=== PATIENT | female | born 1980 | race Caucasian/White ===

== ENCOUNTER → 2016-12-28 | Outpatient (CLI) | payer BC ==
--- NOTE | 2016-12-29 07:30 | USB ---
Reason for exam: clinical finding. History: Benign US biopsy breast VAD LT of the left breast, May 26, 2016. Indicated problem(s): palpable abnormality in the right breast. Physical Findings: Nurse Summary: 0.5cm nodule at 10:30, movable (nurse dw). US Breast BILAT Right breast ultrasound includes all four quadrants, the retroareolar region and axilla. Finding demonstrates a 0.4 x 0.4 x 0.3cm oval leson too small to characterize at 5 o'clock and can be reassessed in 6 months. No abnormality seen at the palpable site at 11 o'clock on right breast zone B/C. Left breast ultrasound includes all four quadrants, the retroareolar region and axilla. Finding demonstrate a 0.7 x 0.7 x 0.5cm oval, hypoechoic lesion at 3 o'clock, prior biopsy here with clips, versus 11 x 8 x 6mm previously prior to biopsy, benign, fibroadenoma. These results were verbally communicated with the patient and result sheet given to the patient on 12/28/16. ASSESSMENT: Probably benign, BI-RAD 3 RECOMMENDATION: 1. Follow-up diagnostic mammogram of both breasts in 6 months. Back on schedule for May. 2. Ultrasound of the right breast in 6 months (5 o'clock), incidental finding during evaluation of a palpable area in the right breast. 3. Manage on a clinical basis with regard to any suspicious palpable abnormality. [facility]
== END | disposition home or self-care (01) ==
LOC: RADUSWWP 15:46
PROVIDERS: ATTEND Surgery
DX: R92.8 Other abnormal and inconclusive findings on diagnostic imaging of breast (principal)

== ENCOUNTER → 2018-07-26 | Outpatient (CLI) | payer BC ==
--- NOTE | 2018-07-29 09:47 | MM ---
Reason for exam: additional evaluation requested from prior study. Last mammogram was performed 2 years and 2 months ago. History: Benign US biopsy breast VAD LT of the left breast, May 26, 2016. Taking hormonal contraceptives beginning at age 37. Physical Findings: Nurse did not find any significant physical abnormalities on exam. MG Diagnostic Mammo w CAD BRIANNA Bilateral CC and MLO view(s) were taken. XCCL view(s) were taken of the left breast. Prior study comparison: May 26, 2016, left breast MG diagnostic mammo LT wo CAD. May 24, 2016, bilateral MG diagnostic mammo w CAD BRIANNA. The breast tissue is heterogeneously dense. This may lower the sensitivity of mammography. No suspicious calcifications are seen. Previous mammotome biopsy in the left breast. Increased density adjacent to previous biopsy site. These results were verbally communicated with the patient and result sheet given to the patient on 07/26/18. ASSESSMENT: Incomplete: need additional imaging evaluation, BI-RAD 0 RECOMMENDATION: Ultrasound of the left breast.
--- NOTE | 2018-07-29 09:48 | USB ---
Reason for exam: additional evaluation requested from abnormal screening. History: Benign US biopsy breast VAD LT of the left breast, May 26, 2016. Taking hormonal contraceptives beginning at age 37. US Breast Limited LT Left limited breast ultrasound including focal area of concern, retroareolar and axilla demonstrates a 0.8 x 0.6 x 0.7cm oval, solid lesion at 3 o'clock, previously biopsied, no additional abnormality seen. These results were verbally communicated with the patient and result sheet given to the patient on 07/26/18. ASSESSMENT: Probably benign, BI-RAD 3 RECOMMENDATION: Follow-up diagnostic mammogram of the left breast in 6 months.
== END | disposition home or self-care (01) ==
LOC: RADMAMWWP 15:50
PROVIDERS: ATTEND Family Medicine
DX: R92.8 Other abnormal and inconclusive findings on diagnostic imaging of breast (principal)
CPT/HCPCS: 77066

== ENCOUNTER 2019-10-19 10:29 | Emergency (ER) | payer BC ==
[2019-10-19 10:33] VITALS: RESP 18
[2019-10-19] MEDS ORDERED: Rhogam IMMUNE GLOBULIN 1,500 UNIT/1 ML IM ONE (11:07)
--- NOTE | 2019-10-19 11:15 | ED ---
Female Urogenital HPI - General Chief complaint: Vaginal Bleeding Stated complaint: Bleeding 8wks preg Time Seen by Provider: 10/19/19 10:41 Source: patient, RN notes reviewed, old records reviewed Mode of arrival: ambulatory Limitations: no limitations - History of Present Illness Initial comments: This Patient is a pleasant 39-year-old female, she presents emergency department today for concern for heavy abnormal uterine bleeding in early . Patient is a female. She reports she is approximately 8 weeks based off of her last menstrual. Patient reports a chief to the [place] with Dr. Saha. Patient states that she does have an upcoming appointment with Dr. Saha in 2 weeks. Patient states that she was taking control, and this was an unplanned . Patient states that she has had no significant abdominal pain at this time. She reports no nausea or vomiting change in urination. - Related Data Allergies Allergy/AdvReac Type Severity Reaction Status Date / Time No Known Allergies Allergy Verified 10/19/19 13:28 Review of Systems ROS Statement: Those systems with pertinent positive or pertinent negative responses have been documented in the HPI. ROS Other: All systems not noted in ROS Statement are negative. Past Medical History Past Medical History: No Reported History History of Any Multi-Drug Resistant Organisms: None Reported Past Surgical History: Section, Cholecystectomy Past Psychological History: No Psychological Hx Reported Smoking Status: Never smoker Past Alcohol Use History: None Reported Past Drug Use History: None Reported General Exam - General Exam Comments Initial Comments: 39-year-old female. Alert and oriented 3. Limitations: no limitations General appearance: alert, in no apparent distress Head exam: Present: atraumatic Eye exam: Present: normal appearance, PERRL, EOMI. Absent: scleral icterus, conjunctival injection, periorbital swelling ENT exam: Present: normal exam Neck exam: Present: normal inspection. Absent: tenderness, meningismus, lymphadenopathy Respiratory exam: Present: normal lung sounds bilaterally. Absent: respiratory distress, wheezes, rales, rhonchi, stridor Cardiovascular Exam: Present: regular rate, normal rhythm, normal heart sounds. Absent: systolic murmur, diastolic murmur, rubs, gallop, clicks GI/Abdominal exam: Present: soft, normal bowel sounds. Absent: distended, tenderness, guarding, rebound, rigid External exam: Present: normal external exam Speculum exam: Present: vaginal bleeding (Patient does have some vaginal bleeding. No significant clotting. Cervix appears closed. No adnexal tenderness.). Absent: normal speculum exam By manual exam: Present: normal by manual exam. Absent: cervical motion tenderness, adnexal tenderness Extremities exam: Present: normal inspection, full ROM, normal capillary refill. Absent: tenderness, pedal edema, joint swelling, calf tenderness Back exam: Present: normal inspection Neurological exam: Present: alert, oriented X3, CN II-XII intact Psychiatric exam: Present: normal affect, normal mood Skin exam: Present: warm, dry, intact, normal color. Absent: rash Course Vital Signs 10/19/19 10:30 Temperature 98.2 F Pulse Rate 101 H Respiratory 18 Rate Blood Pressure 154/81 O2 Sat by Pulse 99 Oximetry Medical Decision Making - Medical Decision Making 31-year-old female, . She has not Rh- blood type. She presents for vaginal bleeding times one day. Patient was given RhoGAM. Ultrasound was completed. There is evidence of viable and treatment but moderate amount of subchorionic bleed. I discussed Patient is to have pelvic rest, no intercourse and minimal lifting. I discussed patient's case with Dr. Rey. Recommends Patient following up in the office earlier with Dr. Saha. She did have a scheduled appointment on October 28. Patient advised to call their office first thing tomorrow morning. Patient was given administered RhoGAM and emergency department. - Lab Data Result diagrams: 10/19/19 11:24 10/19/19 11:24 Lab Results 10/19/19 10/19/19 10/19/19 Range/Units 11:24 11:24 11:24 WBC 8.0 (3.8-10.6) k/uL RBC 4.38 (3.80-5.40) m/uL Hgb 12.6 (11.4-16.0) gm/dL Hct 38.2 (34.0-46.0) % MCV 87.0 (80.0-100.0) fL MCH 28.7 (25.0-35.0) pg MCHC 33.0 (31.0-37.0) g/dL RDW 11.6 (11.5-15.5) % Plt Count 232 (150-450) k/uL Neutrophils % 76 % Lymphocytes % 18 % Monocytes % 4 % Eosinophils % 1 % Basophils % 0 % Neutrophils # 6.1 (1.3-7.7) k/uL Lymphocytes # 1.5 (1.0-4.8) k/uL Monocytes # 0.3 (0-1.0) k/uL Eosinophils # 0.1 (0-0.7) k/uL Basophils # 0.0 (0-0.2) k/uL PT 9.6 (9.0-12.0) sec INR 0.9 (<1.2) APTT 22.6 (22.0-30.0) sec Sodium 136 L (137-145) mmol/L Potassium 4.2 (3.5-5.1) mmol/L Chloride 106 (98-107) mmol/L Carbon Dioxide 24 (22-30) mmol/L Anion Gap 6 mmol/L BUN 12 (7-17) mg/dL Creatinine 0.46 L (0.52-1.04) mg/dL Est GFR (CKD-EPI)AfAm >90 (>60 ml/min/1.73 sqM) Est GFR (CKD-EPI)NonAf >90 (>60 ml/min/1.73 sqM) Glucose 86 (74-99) mg/dL Calcium 9.7 (8.4-10.2) mg/dL HCG, Quant 262479.0 mIU/mL Trichomonas Ag (Rapid) (Negative) Blood Type Blood Type Recheck Bld Type Recheck Status Antibody Screen 10/19/19 10/19/19 Range/Units 11:24 12:30 WBC (3.8-10.6) k/uL RBC (3.80-5.40) m/uL Hgb (11.4-16.0) gm/dL Hct (34.0-46.0) % MCV (80.0-100.0) fL MCH (25.0-35.0) pg MCHC (31.0-37.0) g/dL RDW (11.5-15.5) % Plt Count (150-450) k/uL Neutrophils % % Lymphocytes % % Monocytes % % Eosinophils % % Basophils % % Neutrophils # (1.3-7.7) k/uL Lymphocytes # (1.0-4.8) k/uL Monocytes # (0-1.0) k/uL Eosinophils # (0-0.7) k/uL Basophils # (0-0.2) k/uL PT (9.0-12.0) sec INR (<1.2) APTT (22.0-30.0) sec Sodium (137-145) mmol/L Potassium (3.5-5.1) mmol/L Chloride (98-107) mmol/L Carbon Dioxide (22-30) mmol/L Anion Gap mmol/L BUN (7-17) mg/dL Creatinine (0.52-1.04) mg/dL Est GFR (CKD-EPI)AfAm (>60 ml/min/1.73 sqM) Est GFR (CKD-EPI)NonAf (>60 ml/min/1.73 sqM) Glucose (74-99) mg/dL Calcium (8.4-10.2) mg/dL HCG, Quant mIU/mL Trichomonas Ag (Rapid) Negative (Negative) Blood Type A Negative Blood Type Recheck A Neg Bld Type Recheck Status No Antibody Screen NEGATIVE - Radiology Data Radiology results: report reviewed Final intrauterine gestation with gestational sacs of 9 weeks and 5 days estimated confinement is 08/15/2020. Presence of subchorionic bleed. Short-term follow-up may be worthwhile. Subchorionic bleed measures 1.3 x 3.8 x 1.5 cm. Disposition Clinical Impression: Subchorionic bleed, 9 weeks gestation of , Rh negative status during Disposition: HOME SELF-CARE Condition: Stable Instructions (If sedation given, give patient instructions): Subchorionic Hemorrhage (ED) Additional Instructions: Patient advised to follow up with OB. Patient should've pelvic rest. No heavy lifting. Please return to the emergency room if your symptoms increase or worsen or for any other concerns. Is patient prescribed a controlled substance at d/c from ED?: No Referrals: Lakeisha Mitchell III, MD [Primary Care Provider] - 1-2 days Meagan Saha DO [Doctor of Osteopathic Medicine] - 1-2 days Time of Disposition: 13:29
[2019-10-19 11:52] LABS: African American GFR (CKD) >90 (>60 ml/min/1.73 sqM); Anion Gap 6 mmol/L; Blood Urea Nitrogen 12 mg/dL (7-17); Calcium 9.7 mg/dL (8.4-10.2); Carbon Dioxide 24 mmol/L (22-30); Chloride 106 mmol/L (98-107); Glucose 86 mg/dL (74-99); Non-African American GFR(CKD) >90 (>60 ml/min/1.73 sqM); Potassium 4.2 mmol/L (3.5-5.1); Sodium 136 mmol/L (137-145)
[2019-10-19 11:53] LABS: Basophils % (A) 0 %; Eosinophils # (A) 0.1 k/uL (0-0.7); Eosinophils % (A) 1 %; HCT 38.2 % (34.0-46.0); HGB 12.6 gm/dL (11.4-16.0); Lymphocytes # (A) 1.5 k/uL (1.0-4.8); Lymphocytes % (A) 18 %; MCH 28.7 pg (25.0-35.0); Mean Platelet Volume 7.7; Monocytes # (A) 0.3 k/uL (0-1.0); Monocytes % (A) 4 %; Neutrophils # (A) 6.1 k/uL (1.3-7.7); Neutrophils % (A) 76 %; Platelet Count 232 k/uL (150-450); RBC 4.38 m/uL (3.80-5.40); RDW 11.6 % (11.5-15.5)
[2019-10-19 12:28] LABS: INR 0.9 (<1.2)
[2019-10-19 12:29] LABS: Partial Thromboplastin Time 22.6 sec (22.0-30.0); Prothrombin Time 9.6 sec (9.0-12.0)
--- NOTE | 2019-10-19 12:35 | US ---
EXAMINATION TYPE: Transabdominal DATE OF EXAM: 10/19/2019 12:14 PM COMPARISON: NONE CLINICAL HISTORY: abnormal uterine bleeding early . Vaginal bleeding today; , C section x 3 EXAM PERFORMED: Transabdominal (TA) EXAM MEASUREMENTS: GESTATIONAL AGE / DATING Physician Established: Not yet established Dates by LMP: (8 weeks/5 days) EDC: 05/25/2020 Dates by First Scan: No previous. Dates by Current Scan for: (9 weeks/ 5 days) EDC: 05/18/2020 MATERNAL ANATOMY Uterus: 13.3 x 8.7 x 8.2cm Right Ovary: 3.4 x 2.6 x 2.2cm Left Ovary: not seen Post CDS / Adnexa: wnl Presence of free fluid: no Presence of corpus luteal cyst: in right ovary = 1.7 x 1.8 x 1.4cm Presence of subchorionic bleed: yes, superior to gestational sac = 1.3 x 3.8 x 1.5cm GESTATION / SURVEY CRL: 2.9cm (9 weeks/5 days) Yolk Sac (normal less than 6mm): 4.6mm Heart Rate: 175 bpm Rhythm: Normal IUP: Single, Viable IUP Date of LMP: 08/19/2019 Beta HcG (if available): NA Single, live IUP,9 weeks/ 5 days, EDC: 05/18/2020, [id number]; presence of subchorionic bleed noted s uperior to gestational sac = 1.3 x 3.8 x 1.5cm. IMPRESSION: VIABLE INTRAUTERINE GESTATION WITH A GESTATIONAL AGE OF 9 WEEKS 5 DAYS +/- 5 DAYS. ESTIMATED DATE OF CONFINEMENT BASED ON THIS EXAMINATION IS 08/15/2020. PLEASE NOTE THE PRESENCE OF SUBCHORIONIC BLEED. SHORT-TERM FOLLOW-UP MAY BE WORTHWHILE.
[2019-10-19 13:27] VITALS: BP 125/76; PULSE 74; TEMP 98.1
[2019-10-20 14:49] LABS: N. gonorrhoeae,PCR Negative (Neg,Equiv); Neisseria Source Vagina
[2019-10-20 14:51] LABS: C. trachomatis,PCR Negative (Neg,Equiv); Chlamydia trachomatis Source Vagina
== END 2019-10-19 14:00 | disposition home or self-care (01) ==
LOC: EC 10:29
DX: O20.9 Hemorrhage in early pregnancy, unspecified (principal); Z3A.09 9 weeks gestation of pregnancy; Z67.91 Unspecified blood type, Rh negative
CPT/HCPCS: 36415; 86900; 86901; 80048; 85025; 85610; 85730; 86850; 84702; 87808; 87491; 87591; 87070; 76801; 99284; 96372; J2791

== ENCOUNTER → 2019-11-11 | Outpatient (CLI) | payer BC ==
[2019-11-11 17:45] LABS: HCT 36.1 % (34.0-46.0); HGB 11.9 gm/dL (11.4-16.0); MCV 87.8 fL (80.0-100.0); Mean Platelet Volume 7.6; Platelet Count 275 k/uL (150-450); RBC 4.11 m/uL (3.80-5.40); RDW 11.9 % (11.5-15.5); WBC 9.8 k/uL (3.8-10.6)
[2019-11-12 00:43] LABS: African American GFR (CKD) 142.3 (60.0-200.0); Non-African American GFR(CKD) 122.8 (60.0-200.0)
[2019-11-12 02:11] LABS: Hepatitis B Surface Antigen Non-Reactive (Non-Reactive)
== END | disposition home or self-care (01) ==
LOC: LABWHC1 17:28
PROVIDERS: ATTEND Obstetrics & Gynecology
DX: Z34.81 Encounter for supervision of other normal pregnancy, first trimester (principal); Z3A.00 Weeks of gestation of pregnancy not specified
CPT/HCPCS: 36415; 82565; 82947; 85027; 86762; 86780; 86850; 86870; 86880; 86900; 86901; 87340

== ENCOUNTER 2020-04-19 10:25 | Outpatient (CLI) | payer BC ==
[2020-04-19 10:56] LABS: Appearance,Urine Clear (Clear); Bilirubin,Urine Negative (Negative); Blood,Urine Negative (Negative); Color,Urine Yellow; Glucose,Urine (UA) Negative (Negative); Ketones,Urine Negative (Negative); Leukocyte Esterase,Urine Negative (Negative); Nitrite,Urine Negative (Negative); Protein,Urine Trace (Negative); Specific Gravity,Urine 1.014 (1.001-1.035); Urobilinogen,Urine <2.0 mg/dL (<2.0)
[2020-04-19 11:04] LABS: Basophils % (A) 0 %; Eosinophils # (A) 0.2 k/uL (0-0.7); Eosinophils % (A) 2 %; HCT 35.3 % (34.0-46.0); HGB 11.6 gm/dL (11.4-16.0); Hypochromasia Slight; Lymphocytes # (A) 1.5 k/uL (1.0-4.8); Lymphocytes % (A) 15 %; MCH 27.1 pg (25.0-35.0); MCHC 32.8 g/dL (31.0-37.0); MCV 82.8 fL (80.0-100.0); Mean Platelet Volume 8.4; Monocytes # (A) 0.5 k/uL (0-1.0); Monocytes % (A) 5 %; Neutrophils # (A) 8.2 k/uL (1.3-7.7); Neutrophils % (A) 78 %; Platelet Count 246 k/uL (150-450); RBC 4.27 m/uL (3.80-5.40); RDW 12.9 % (11.5-15.5); WBC 10.5 k/uL (3.8-10.6)
[2020-04-19 11:06] VITALS: BP 121/75; PULSE 114; RESP 18; TEMP 98.6
[2020-04-19 11:08] LABS: ALT 22 U/L (4-34); AST 31 U/L (14-36); African American GFR (CKD) >90 (>60 ml/min/1.73 sqM); Blood Urea Nitrogen 9 mg/dL (7-17); LDH 565 U/L (313-618); Non-African American GFR(CKD) >90 (>60 ml/min/1.73 sqM); Uric Acid 3.8 mg/dL (3.7-7.4)
[2020-04-19 11:09] LABS: Protein/Creatinine Ratio,Urine 0.116
--- NOTE | 2020-04-20 08:29 | P.MSEPDOC ---
Presenting Problems - Arrival Data Date of Arrival on Unit: 04/19/20 Time of Arrival on Unit: 10:25 Mode of Transport: Ambulatory - Complaint OB-Reason for Admission/Chief Complaint: PIH Comment: Pt sent from home, script for PIH evaluation faxed from [facility]. Pt states 2 high BP taken at home Sunday04/18/20. Medical History - Information : 4 Para: 3 Term: 3 : 0 Abortions: Spontaneous or Elective: 0 Number of Living Children: 3 - Gestational Age Gestational Age by GRICELDA (wks/days): 34 Weeks and 6 Days Review of Systems - Review of Systems Constitutional: No problems Breast: No problems ENT: No problems Cardiovascular: No problems Respiratory: No problems Gastrointestinal: No problems Genitourinary: No problems Musculoskeletal: No problems Neurological: No problems Skin: No problems Vital Signs - Temperature Temperature: 98.6 F Temperature Source: Oral - Pulse Right Sitting Brachial Pulse Rate: 114 Pulse Assessment Method: Automatic Cuff - Respirations Respiratory Rate: 18 Oxygen Delivery Method: Room Air O2 Sat by Pulse Oximetry: 98 - Blood Pressure Right Arm Sitting Blood Pressure: 121/75 Blood Pressure Mean: 90 Medical Screen Scoring (Pre) - Cervical Exam Dilation: Exam Deferred Effacement: Exam Deferred Membranes: Intact - Uterine Contractions Frequency: > 5 minutes apart = 1 Duration: N/A Intensity: N/A - Maternal Vital Signs Maternal Temperature: N/A Maternal Blood Pressure: N/A Signs of Preeclampsia: N/A Maternal Respirations: N/A - Maternal Trauma Maternal Trauma: N/A - Assessment - Baby A Baseline FHR: 150 Heart Rate - NICHD Category: Category I (Normal) = 0 NST: Reactive Position: N/A - Total Score - Baby A Total Score - Baby A: 1 - Total Score - Baby B Total Score - Baby B: 1 - Total Score - Baby C Total Score - Baby C: 1 - Level of Risk - Baby A Level of Risk - Baby A: Low (0-5) - Level of Risk - Baby B Level of Risk - Baby B: Low (0-5) - Level of Risk - Baby C Level of Risk - Baby C: Low (0-5) Physician Notification (Pre) - Physician Notified Physician Notified Date: 04/19/20 Physician Notified Time: 11:34 - Notification Comment Comment: Teresa brown\Dr. Saha, advsd , 34 03/14, reactive NST, reviewed labs and serial BPs. States to advise pt to take BP a few times a week, ecspecially when not feeling and to. come directly to triage with increased BPs. Pt to follow up as scheduled on . Disposition - Disposition OB Disposition: Discharge to home, Written follow up instructions reviewed Discharge Date: 04/19/20 Discharge Time: 11:36 I agree with the RN Medical Screening Exam: Yes Risk & Benefit of care provided described in d/c instruction: Yes Diagnosis: UNSPECIFIED MATERNAL HYPERTENSION, THIRD TRIMESTER
== END 2020-04-19 11:36 | disposition home or self-care (01) ==
LOC: FBPOP 10:25
PROVIDERS: ATTEND Obstetrics & Gynecology
DX: O16.3 Unspecified maternal hypertension, third trimester (principal); Z3A.34 34 weeks gestation of pregnancy
CPT/HCPCS: 59025; 81003; 82565; 82570; 83615; 84156; 84450; 84460; 84520; 84550; 85025

== ENCOUNTER 2020-05-20 06:07 | Inpatient (IN) | payer BC ==
[2020-05-19 14:02] VITALS: BMI 32.9
--- NOTE | 2020-05-19 17:26 | P.HPOB ---
History of Present Illness H&P Date: 05/19/20 Chief Complaint: Scheduled repeat with tubal ligation This is a 39 y.o. female, gravda 4, para 3, with an estimated date of confinement of 05/25/2020, estimated gestational age of 39-2/7 weeks who presents for repeat low transverse section with bilateral tubal ligation for family planning. She has been feeling irregular contractions and pressure. course has been uncomplicated. labs: Hepatitis B surface antigen-neg Rubella-immune Syphilis antibody-neg Random glucose-91 Hemoglobin-11.9 Blood type-A neg Rhogam given at 29 weeks 1 hr. GTT-80 GBS-neg. OB Hx: . Hx of 3 deliveries at term. Armhole Sewer Hx: No hx of STDs. 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 Review of Systems Constitutional: Denies chills, Denies fever Eyes: denies blurred vision, denies pain Ears, nose, mouth and throat: Denies headache, Denies sore throat Cardiovascular: Denies chest pain, Denies shortness of breath Respiratory: Denies cough Gastrointestinal: Reports abdominal pain Genitourinary: Reports pelvic pain, Reports Musculoskeletal: Reports low back pain Integumentary: Denies pruritus, Denies rash Neurological: Denies numbness, Denies weakness Psychiatric: Denies anxiety, Denies depression Past Medical History Past Medical History: No Reported History History of Any Multi-Drug Resistant Organisms: None Reported Past Surgical History: Section (x), Cholecystectomy Additional Past Surgical History / Comment(s): x3 Past Anesthesia/Blood Transfusion Reactions: Postoperative Nausea & Vomiting (PONV) Additional Past Anesthesia/Blood Transfusion Reaction / Comment(s): SEVERE NV. SPINAL HEADACHE-HAD TO HAVE BLOOD PATCH Past Psychological History: No Psychological Hx Reported Smoking Status: Never smoker Past Alcohol Use History: None Reported Past Drug Use History: None Reported - Past Family History Father Family Medical History: Cancer Medications and Allergies Home Medications Medication Instructions Recorded Confirmed Type 78/Iron/Folate 1/Dha 1 each PO DAILY 04/19/20 05/19/20 History [Prenate Dha Softgel] Allergies Allergy/AdvReac Type Severity Reaction Status Date / Time metoclopramide [From Reglan] AdvReac MO, Verified 05/19/20 13:51 EMOTIONAL, Exam Osteopathic Statement: *. No significant issues noted on an osteopathic structural exam other than those noted in the History and Physical/Consult. Intake and Output 05/19/20 05/19/20 05/19/20 06:59 14:59 22:59 Other: Weight 92.533 kg HEENT: within normal limits Heart: regular rate and rhythm Lungs: clear to auscultation bilaterally Abdomen: heart tones: 140's by doppler Cervix 1.5 cm/70%/-1 Extremites: Neg. Grecia's Assessment and Plan (1) 39 weeks gestation of Status: Acute Code(s): Z3A.39 - 39 WEEKS GESTATION OF SNOMED Code(s): 42329395 (2) Family planning Status: Acute Code(s): Z30.09 - ENCOUNTER FOR OTH GENERAL CNSL AND ADVICE ON CONTRACEPTION SNOMED Code(s): 932170463 Plan: Proceed with repeat section with bilateral tubal ligation.
[~2020-05-20 06:07] MED LIST: LACTATED RINGERS 1,000 ML IV SCH; NALOXONE 0.4 MG/ML 1 ML VIAL IV PRN
[2020-05-20] MEDS ORDERED: LACTATED RINGERS 1,000 ML IV ONE (06:17)
[2020-05-20] MEDS ORDERED: CITRIC ACID-SODIUM CITRATE 15 ML CUP PO ONE (06:17)
[2020-05-20] MEDS ORDERED: LIDOCAINE 1% (10MG/ML) FOR IV START INTRADERMA PRN (06:17)
[2020-05-20] MEDS ORDERED: LACTATED RINGERS 1,000 ML IV SCH ×3 (06:17→16:26)
[2020-05-20 07:03] LABS: Basophils % (A) 0 %; Eosinophils # (A) 0.1 k/uL (0-0.7); Eosinophils % (A) 1 %; HGB 10.2 gm/dL (11.4-16.0); Hypochromasia Slight; Lymphocytes # (A) 1.5 k/uL (1.0-4.8); Lymphocytes % (A) 16 %; MCH 25.3 pg (25.0-35.0); MCHC 31.9 g/dL (31.0-37.0); MCV 79.3 fL (80.0-100.0); Mean Platelet Volume 9.4; Monocytes # (A) 0.4 k/uL (0-1.0); Monocytes % (A) 4 %; Neutrophils # (A) 7.1 k/uL (1.3-7.7); Neutrophils % (A) 78 %; Platelet Count 237 k/uL (150-450); RBC 4.03 m/uL (3.80-5.40); RDW 13.7 % (11.5-15.5); WBC 9.1 k/uL (3.8-10.6)
[2020-05-20] MEDS ORDERED: ONDANSETRON 4 MG/2 ML VIAL ONE (07:47)
[2020-05-20] MEDS ORDERED: MORPHINE SULFATE (PF) 0.3 MG/0.3 ML SYR ONE (07:47)
[2020-05-20] MEDS ORDERED: OXYTOCIN 10 UNIT/ML 1 ML VIAL ONE (07:47)
[2020-05-20] MEDS ORDERED: PHENYLEPHRINE-0.9% NACL SYG 1 MG/10 ML SYRINGE ONE (07:47)
[2020-05-20] MEDS ORDERED: KETOROLAC 30 MG/ML 1 ML VIAL ONE (07:47)
[2020-05-20] MEDS ORDERED: NALBUPHINE 10 MG/ML (1 ML AMP) ONE (07:47)
--- NOTE | 2020-05-20 08:35 | P.OP ---
Date of Procedure: 05/20/20 Preoperative Diagnosis: 1. Intrauterine at 39-2/7 weeks. 2. History of previous sections. 3. Family-planning. Postoperative Diagnosis: Same Procedure(s) Performed: Repeat low transverse section with bilateral partial salpingectomy Anesthesia: spinal (Duramorph) Surgeon: Meagan Saha Ticket Scheduler #1: Naren Almanza Estimated Blood Loss (ml): 200 Pathology: other (Portions of left and right fallopian tubes) Condition: stable Disposition: floor Indications for Procedure: This is a 39-year-old female 4 para 3 at 39-2/7 weeks who presents for repeat section with bilateral partial salpingectomy. I have discussed the risks, benefits, and alternative therapies for the above- mentioned procedure and for both sedation/anesthesia as well as necessary blood products administration, if indicated, as they pertain to this patient. The patient has indicated her understanding and acceptance of the risks and procedures discussed. Operative Findings: A viable male is noted in the vertex presentation with scores of 9 at 1 minute and 9 at 5 minutes and infant weight of 9 lbs. 5 oz. There was a cord around the body with delivery. Normal uterus tubes and ovaries are noted. Description of Procedure: The patient is taken to the operating room where she is placed in the dorsal supine position with leftward tilt after spinal Duramorph anesthesia is given. She is prepped and draped in the normal sterile fashion. Skin was tested and found to be adequately anesthetized. A Pfannenstiel skin incision was made with a scalpel through the previous laparotomy scar. A second knife was used to carry the incision down to the underlying layer of fascia. The fascia was nicked in the midline with a scalpel and then extended laterally bilaterally w ith Hill scissors. The anterior lip of the fascia was grasped with 2 Jaqueline clamps and then dissected off the underlying rectus muscle in the midline with Hill scissors. The inferior aspect of the fascial incision was grasped with 2 Jaqueline clamps and dissected off the underlying rectus muscle and the midline with Hill scissors. Next the peritoneum layer was tented up with 2 hemostats and then entered sharply with the scalpel. The incision is extended superiorly and inferiorly with Metzenbaum scissors. Next a DeLee retractor is placed. The vesicouterine peritoneum is entered sharply with Metzenbaum scissors and extended laterally bilaterally with Metzenbaum scissors and then the bladder flap is pushed inferiorly. The lower uterine segment is incised in transverse fashion with the scalpel and then bluntly entered with a hemostat. Clear fluid is noted. The incision was then extended laterally bilaterally with 2 fingers. Next the 's head is delivered through the incision. Nose and mouth are bulb suctioned. The remainder of the infant is easily delivered and placed on mother's abdomen. A body cord 1 is reduced around the . Cord is clamped and cut. is taken to warmer by nursing staff. Uterine fundus is gently massaged and placenta is delivered manually. Uterus is exteriorized and cleared of all clots and debris. Uterine incision is closed with 0 Vicryl suture in a running locked fashion. Good hemostasis is noted. Hemostat was used to grasp the midportion of the right fallopian tube. The mesosalpinx was entered with Bovie cautery. 0 Vicryl suture was tied 2 times around both the proximal and distal portion of the tube. The knuckle of tube is removed with Metzenbaum scissors. The ends of the tubes are cauterized with Bovie cautery. Excellent hemostasis is noted. The same procedure is carried out on the left fallopian tube. Posterior cul-de-sac is suctioned of all clots and debris. Uterus is returned to the abdomen. Incision is noted to be hemostatic. Both tubal sites are noted to be hemostatic. Peritoneal layer is closed with 0 Vicryl suture in a running fashion. Muscle layer is reapproximated with 0 Vicryl suture in i nterrupted fashion. Fascia layer is then closed with 0 PDS suture with 2 sutures meeting in the midline and the knots buried in either side and in the midline. The subcutaneous tissue was then closed with 2-0 Vicryl suture. Skin layer was then closed with margret. All sponge and needle counts are correct. The patient is taken to recovery room in stable condition.
[2020-05-20] MEDS ORDERED: Rhogam IMMUNE GLOBULIN 1,500 UNIT/1 ML IM ONE (09:27)
[2020-05-20] MEDS ORDERED: diphenhydrAMINE 50 MG/ML 1 ML VIAL IVP PRN ×4 (09:27→16:26)
[2020-05-20] MEDS ORDERED: NALOXONE 0.4 MG/ML 1 ML VIAL IV PRN (09:27)
[2020-05-20] MEDS ORDERED: diphenhydrAMINE 50 MG CAP PO PRN ×2 (09:27→16:26)
[2020-05-20] MEDS ORDERED: ZOLPIDEM 5 MG TAB PO PRN ×2 (09:27→16:26)
[2020-05-20] MEDS ORDERED: ACETAMINOPHEN TAB 325 MG TAB PO PRN ×2 (09:27→16:26)
[2020-05-20] MEDS ORDERED: ONDANSETRON 4 MG/2 ML VIAL IVP PRN ×2 (09:27→16:26)
[2020-05-20] MEDS ORDERED: diphenhydrAMINE 25 MG CAP PO PRN ×2 (09:27→16:26)
[2020-05-20] MEDS ORDERED: OXYTOCIN 20 UNITS/1000 ML NS 1,000 ML IV SCH ×2 (09:30→16:26)
[2020-05-20] MEDS ORDERED: HYDROcodone/APAP 7.5-325MG 1 EACH TAB PO PRN (16:26)
[2020-05-20] MEDS ORDERED: LANOLIN CREAM 5 GM TUBE TOPICAL PRN (16:26)
[2020-05-20] MEDS ORDERED: SIMETHICONE 80 MG CHEWABLE PO PRN (16:26)
[2020-05-20] MEDS ORDERED: HYDROcodone/APAP 5-325MG 1 EACH TAB PO PRN (16:26)
[2020-05-20] MEDS ORDERED: IBUPROFEN 600 MG TAB PO PRN (16:26)
[2020-05-20] MEDS: SENNOSIDES-DOCUSATE SODIUM 1 EACH TAB PO SCH ×2 (17:01→20:50)
[2020-05-20] MEDS: KETOROLAC 15 MG/ML 1 ML VIAL IVP PRN (17:03)
[2020-05-21] MEDS: KETOROLAC 15 MG/ML 1 ML VIAL IVP PRN ×2 (01:00→07:43)
--- NOTE | 2020-05-21 06:41 | P.PN ---
Progress Note - Text Progress Note Date: 05/21/20 Postoperative day 1 status post section under spinal anesthesia, and i ntrathecal morphine given for postoperative analgesia, patient doing well, there is no anesthesia related complications, Patient had no headache, vital signs stable , Assessment and plan= postop day 1 status post , doing well there is no anesthesia related complication.
[2020-05-21] MEDS: SENNOSIDES-DOCUSATE SODIUM 1 EACH TAB PO SCH ×3 (07:19→19:41)
[2020-05-21 07:22] LABS: Basophils % (A) 0 %; Eosinophils # (A) 0.1 k/uL (0-0.7); Eosinophils % (A) 1 %; HCT 30.8 % (34.0-46.0); HGB 9.7 gm/dL (11.4-16.0); Hypochromasia Slight; Lymphocytes # (A) 0.9 k/uL (1.0-4.8); Lymphocytes % (A) 8 %; MCH 25.4 pg (25.0-35.0); MCHC 31.6 g/dL (31.0-37.0); MCV 80.4 fL (80.0-100.0); Monocytes # (A) 0.3 k/uL (0-1.0); Monocytes % (A) 3 %; Neutrophils # (A) 9.5 k/uL (1.3-7.7); Neutrophils % (A) 87 %; Platelet Count 224 k/uL (150-450); RBC 3.83 m/uL (3.80-5.40); RDW 13.8 % (11.5-15.5)
[2020-05-21] MEDS ORDERED: PRENATAL VIT-IRON-FOLIC ACID 1 EACH CAP PO SCH (09:00)
--- NOTE | 2020-05-21 09:00 | P.PNOBGPC ---
Subjective - Subjective Principal diagnosis: Status post repeat section with tubal ligation POD #1 Interval history: Patient is doing well. She is ambulating. She is passing some flatus but no bowel movement yet. Her catheter has been removed but she has not been able to urinate yet. Lochia is minimal. She is bottle feeding. Patient reports: Reports appetite normal, Reports voiding normally, Reports pain well controlled, Reports ambulating normally [place]: transported Objective - Vital Signs Latest vital signs: Vital Signs Temp Pulse Resp BP Pulse Ox 05/21/20 06:00 16 97 05/21/20 04:00 97.7 F 80 18 107/52 05/21/20 02:00 16 98 05/21/20 00:00 98.3 F 75 16 101/58 97 05/20/20 22:00 16 86 L 05/20/20 20:00 98.5 F 86 18 116/65 97 05/20/20 17:23 98.2 F 90 18 112/60 99 05/20/20 16:00 97.8 F 76 18 114/64 98 05/20/20 14:00 97.6 F 84 18 114/71 99 05/20/20 11:07 18 97 05/20/20 11:06 97.2 F L 68 16 123/72 98 05/20/20 10:34 97.4 F L 68 17 107/57 100 05/20/20 10:04 97.6 F 66 16 112/58 100 05/20/20 10:00 17 100 05/20/20 09:34 96.8 F L 72 17 124/57 99 05/20/20 09:19 67 17 130/72 99 05/20/20 09:04 85 17 157/72 98 Intake and Output 05/20/20 05/21/20 05/21/20 22:59 06:59 14:59 Output Total 350 3100 Balance -350 -3100 Output: Urine 350 3100 Straight 2150 Uretheral (Ding) 350 Other: Voiding Method Toilet # Voids 0 0 - Exam Extremities: Present: edema. Absent: tenderness Abdomen: Present: normal appearance, soft (Positive bowel sounds 4). Absent: distention, tenderness Incision: Present: normal, dry, intact. Absent: erythematous Uterus: Present: normal, firm. Absent: tenderness - Labs Labs: Abnormal Lab Results - Last 24 Hours (Table) 05/21/20 Range/Units 06:55 WBC 11.0 H (3.8-10.6) k/uL Hgb 9.7 L (11.4-16.0) gm/dL Hct 30.8 L (34.0-46.0) % Neutrophils # 9.5 H (1.3-7.7) k/uL Lymphocytes # 0.9 L (1.0-4.8) k/uL Assessment and Plan Assessment: Status post repeat section with bilateral partial esophagectomy postoperative day #1 (1) 39 weeks gestation of Current Visit: No Status: Acute Code(s): Z3A.39 - 39 WEEKS GESTATION OF SNOMED Code(s): 66799599 (2) Family planning Current Visit: No Status: Acute Code(s): Z30.09 - ENCOUNTER FOR OTH GENERAL CNSL AND ADVICE ON CONTRACEPTION SNOMED Code(s): 099836462 Plan: Continue with postoperative care. Patient is encouraged to continue to attempt to urinate on her own but if unable to urinate we'll straight cath.
[2020-05-21] MEDS: HYDROcodone/APAP 5-325MG 1 EACH TAB PO PRN ×2 (12:32→19:40)
[2020-05-21] MEDS: IBUPROFEN 600 MG TAB PO PRN ×2 (15:48→23:14)
[2020-05-22] MEDS: HYDROcodone/APAP 5-325MG 1 EACH TAB PO PRN ×2 (04:13→11:51)
[2020-05-22 06:34] VITALS: RESP 16
[2020-05-22] MEDS: IBUPROFEN 600 MG TAB PO PRN (07:59)
[2020-05-22] MEDS: SENNOSIDES-DOCUSATE SODIUM 1 EACH TAB PO SCH (08:00)
--- NOTE | 2020-05-22 11:06 | P.DS ---
Providers Date of admission: 05/20/20 06:07 Expected date of discharge: 05/22/20 Attending physician: Meagan Saha Primary care physician: Stated None - Discharge Diagnosis(es) (1) 39 weeks gestation of Current Visit: No Status: Acute (2) Family planning Current Visit: No Status: Acute Hospital Course: This is a 39-year-old female 4 para 3 at 39-2/7 weeks who presents for repeat section with bilateral partial salpingectomy on 05/20/2020. She delivered a viable male with scores of 9 at 1 minute and 9 at 5 minutes and infant weight of 9 lbs. 5 oz. She is bottle feeding. Postoperatively she has done well. She is passing flatus and bowel movement. She is urinating. Lochia is decreasing. Her pain is fairly well controlled with ibuprofen and Troy. Vital signs are stable. Abdomen is soft with positive bowel sounds 4. Incision is clean dry and intact with margret in place. Extremities show negative Homans. Impression is status post repeat section with bilateral partial salpingectomy postoperative day #2. Plan is to discharge home today. Routine postoperative and instructions are given. She will be given a prescription for ibuprofen and Troy. She has been counseled on opioid use and has signed start taking consent form. She is advised to follow up in the office in approximately a week and a half for a postoperative check and in 6 weeks for a check. She is advised to call the office if she has any further questions or concerns prior to her appointment time. Procedures: Repeat low transverse section with bilateral partial salpingectomy on 05/20/2020 Patient Condition at Discharge: Stable Plan - Discharge Summary Discharge Rx Participant: No New Discharge Prescriptions: New Ibuprofen [Motrin] 600 mg PO Q6HR PRN #60 tab PRN Reason: Mild Pain Or Fever >= 100.5 HYDROcodone/APAP 5-325MG [Troy 5-325] 1 each PO Q4HR PRN #30 tab PRN Reason: Moderate Pain Continue 78/Iron/Folate 1/Dha [Prenate Dha Softgel] 1 each PO DAILY Discharge Medication List 78/Iron/Folate 1/Dha [Prenate Dha Softgel] 1 each PO DAILY 04/19/20 [History] HYDROcodone/APAP 5-325MG [Troy 5-325] 1 each PO Q4HR PRN #30 tab 05/22/20 [Rx] Ibuprofen [Motrin] 600 mg PO Q6HR PRN #60 tab 05/22/20 [Rx] Follow up Appointment(s)/Referral(s): Meagan Saha DO [Doctor of Osteopathic Medicine] - 1 Week Activity/Diet/Wound Care/Special Instructions: Instructions 1. Do not begin any exercise program for 3 weeks. 2. Do not resume sexual relations for 3 weeks or longer if uncomfortable. 3. You may take tub baths or showers at any time. 4. You may use tampons if desired after 3 weeks. 5. Keep the area of episiotomy (stitches) clean and dry. 6. If you are not nursing, wear a good fitting, supportive bra during the day and limit fluid intake for at least 1 week to prevent breast engorgement. 7. Call the office, [phone], within the next week to make appointment for your 6 week checkup if it has not already been made. 8. Report any of the following occurrences to the doctor promptly: a. Heavy, excessive bleeding b. Chills, fever c. Burning or frequency of urination d. Pain or redness and breasts if nursing e. Increasing pain or swelling in episiotomy (stitches). In addition to the above instructions, the following additional should be followed: 1. No heavy lifting or straining (exercising) until after 6 week checkup. 2. Keep abdominal incision clean and dry: You may wear a dressing if more comfortable. 3. Make office appointment for 10 days after going home or as instructed by her doctor. Discharge Disposition: HOME SELF-CARE
[2020-05-22 11:35] VITALS: BP 112/71; PULSE 72; TEMP 98
== END 2020-05-22 12:10 | disposition home or self-care (01) | DRG 785 ==
LOC: 4FBP 06:07
PROVIDERS: ADMIT Obstetrics & Gynecology; ATTEND Obstetrics & Gynecology
PROC: 10D00Z1 Extraction of Products of Conception, Low, Open Approach (ICD-10-PCS; principal; 2020-05-20 08:00)
PROC: 0UB70ZZ Excision of Bilateral Fallopian Tubes, Open Approach (ICD-10-PCS; principal; 2020-05-20 08:00)
DX: O34.211 Maternal care for low transverse scar from previous cesarean delivery (principal); Z30.2 Encounter for sterilization; Z37.0 Single live birth; Z3A.39 39 weeks gestation of pregnancy
CPT/HCPCS: 85025; 85461; 86850; 86900; 86901; 88302

== ENCOUNTER → 2021-09-07 | Outpatient (CLI) | payer BC ==
[~2021-09-07] MED LIST changes: +CASIRIVIMAB/IMDEVIMAB (EUA) 1,200 MG in SODIUM CHLORIDE 0.9% 100 ML IVPB ONE; -LACTATED RINGERS 1,000 ML IV SCH; -NALOXONE 0.4 MG/ML 1 ML VIAL IV PRN; +SODIUM CHLORIDE 0.9% 50 ML IVPB ONE; +SODIUM CHLORIDE 0.9% 500 ML 500 ML in EMPTY BAG 1 BAG IV PRN
[2021-09-07 10:25] VITALS: RESP 16
[2021-09-07 10:48] VITALS: BP 122/77; PULSE 86; TEMP 98.7
== END ==
LOC: PROCWHC3 09:54
PROVIDERS: ATTEND Family Medicine
DX: U07.1 COVID-19 (principal); E66.9 Obesity, unspecified; Z88.8 Allergy status to other drugs, medicaments and biological substances; Z68.25 Body mass index [BMI] 25.0-25.9, adult
CPT/HCPCS: 96360; Q0243; M0243

== ENCOUNTER → 2022-05-03 | Outpatient (CLI) | payer BC ==
--- NOTE | 2022-05-03 08:27 | USB ---
Reason for Exam: Clinical finding. Patient History: Menarche at age 13. First Full-Term at age 22. Hormonal Contraceptives, from age 37 until age 39. 05/26/2016, Benign Core Biopsy on the left side. Risk Values: Chaya 5 year model risk: 0.8%. NCI Lifetime model risk: 11.0%. Technique: Method: Targeted. Prior Study Comparison: 05/24/2016 Bilateral Diagnostic Mammogram, [facility]. 05/26/2016 Left Diagnostic Mammogram, [facility]. 07/26/2018 Bilateral Diagnostic Mammogram, [facility]. Findings: There is a solid slightly hypoechoic well-circumscribed lesion corresponding to the palpable abnormality left upper outer quadrant. This measures 1.0 x 1.1 x 0.8 cm. Previous measurement 0.8 x 0.6 x 0.7 cm. 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 Overall Assessment: Benign, BI-RAD 2 Management: Screening Mammogram of both breasts in 1 year. A clinical breast exam by your physician is recommended on an annual basis and results should be correlated with mammographic findings. Clinical management of the enlarging fibroadenoma. Patient should continue monthly self breast exam. Negative mammogram and negative ultrasound should not preclude biopsy of suspicious palpable modalities. Electronically signed and approved by: Zay Tubbs D.O. Radiologis
--- NOTE | 2022-05-16 13:22 | MM ---
Reason for Exam: Clinical finding. Last mammogram was performed 3 year(s) and 9 month(s) ago. Indicated Problems: Lump or thickening of the left side for 7 Year(s). Patient History: Menarche at age 13. First Full-Term at age 22. Hormonal Contraceptives, from age 37 until age 39. 05/26/2016, Benign Core Biopsy on the left side. Last menstrual period: 04/12/2022 Risk Values: Chaya 5 year model risk: 0.8%. NCI Lifetime model risk: 11.0%. Prior Study Comparison: 05/24/2016 Bilateral Diagnostic Mammogram, [facility]. 05/26/2016 Left Diagnostic Mammogram, [facility]. 07/26/2018 Bilateral Diagnostic Mammogram, [facility]. 07/26/2018 Left Diagnostic Ultrasound, [facility]. Tissue Density: The breast tissue is heterogeneously dense. This may lower the sensitivity of mammography. Findings: Analyzed By CAD. Pattern appears symmetrical. There is a 0.8 cm nodule partially obscured margins in the upper left breast adjacent to a biopsy clip. This is within measurement error in size from prior examination and is located 5 cm from the nipple. Overall Assessment: Benign, BI-RAD 2 Management: Screening Mammogram of both breasts in 1 year. A clinical breast exam by your physician is recommended on an annual basis and results should be correlated with mammographic findings. This exam should not preclude additional follow-up of suspicious palpable abnormalities. Results were given to the patient verbally at the time of exam. Electronically signed and approved by: Zay Tubbs D.O. Radiologis
== END | disposition home or self-care (01) ==
LOC: RADMAMWWP 07:03
PROVIDERS: ATTEND Obstetrics & Gynecology
DX: N63.20 Unspecified lump in the left breast, unspecified quadrant (principal)
CPT/HCPCS: 77062; 77066

== ENCOUNTER → 2024-09-16 | Outpatient (CLI) | payer BC ==
--- NOTE | 2024-09-20 23:25 | MM ---
Reason for Exam: Screening (asymptomatic). Last mammogram was performed 2 year(s) and 5 month(s) ago. Patient History: Menarche at age 13. First Full-Term at age 22. Hormonal Contraceptives, from age 37 until age 39. 05/26/2016, Benign Core Biopsy on the left side. Last menstrual period: 09/09/2024 Risk Values: Chaya 5 year model risk: 1.0%. NCI Lifetime model risk: 10.6%. Prior Study Comparison: 05/26/2016 Left Diagnostic Mammogram, [facility]. 07/26/2018 Bilateral Diagnostic Mammogram, [facility]. 05/03/2022 Bilateral MG 3D diag mammo w/cad BRIANNA, [facility]. Tissue Density: The breasts are heterogeneously dense, which may obscure small masses. Findings: Analyzed By CAD. The pattern is symmetrical. There is a core marker within the left breast No suspicious groups of microcalcifications, spiculated or lobular masses, architectural distortion or other secondary signs of malignancy are mammographically apparent. Overall Assessment: Benign, BI-RAD 2 Management: Screening Mammogram of both breasts in 1 year. A negative mammogram report should not preclude additional follow up of suspicious palpable abnormalities. Patient should continue monthly self breast exam. A clinical breast exam by your physician is recommended on an annual basis and results should be correlated with mammographic findings. Note on Chaya scores and lifetime risk: 1. A Chaya score greater than 3% is considered moderate risk. If this is the case, consider specialist referral to assess eligibility for a risk reducing agent. 2. If overall lifetime risk for the development of breast cancer is 20% or higher, the patient may qualify for future screening with alternating mammogram and breast MRI. [facility], , 09/20/2024 11:22 PM. Electronically signed and approved by: Zay Tubbs D.O. Radiologis
== END | disposition home or self-care (01) ==
LOC: RADMAMWWP 15:49
PROVIDERS: ATTEND Family Medicine
DX: Z12.31 Encounter for screening mammogram for malignant neoplasm of breast (principal); R92.333 Mammographic heterogeneous density, bilateral breasts
CPT/HCPCS: 77063; 77067